=== PATIENT | female | born 1940 | race Native Hawaiian/Other Pacific Islander ===

== ENCOUNTER 2016-12-26 09:22 | Outpatient (CLI) | payer OTHER ==
[2016-12-26 09:57] LABS: POTASSIUM 3.6 mmol/L (3.6-5.2)
[2016-12-26 10:26] LABS: PLATELET COUNT 193 K/uL (152-353)
== END 2016-12-26 19:29 | disposition home or self-care (01) ==
LOC: LABW 09:22
PROVIDERS: Internal Medicine Cardiovascular Disease
DX: I10 Essential (primary) hypertension (principal); E03.8 Other specified hypothyroidism
CPT/HCPCS: 36415; 80053; 80061; 85027

== ENCOUNTER 2017-02-27 15:03 | Outpatient (CLI) | payer OTHER ==
[2017-02-27 15:45] LABS: PLATELET COUNT 193 K/uL (152-353)
== END 2017-02-27 19:47 | disposition home or self-care (01) ==
LOC: LABW 15:03
PROVIDERS: Student in an Organized Health Care Education/Training Program
DX: M79.671 Pain in right foot (principal)
CPT/HCPCS: 36415; 84550; 85027

== ENCOUNTER 2017-05-14 08:40 | Outpatient (CLI) | payer OTHER ==
[2017-05-14 09:09] LABS: PLATELET COUNT 175 K/uL (152-353)
[2017-05-14 09:36] LABS: POTASSIUM 3.7 mmol/L (3.6-5.2)
== END 2017-05-14 09:40 | disposition home or self-care (01) ==
LOC: LABW 08:40
PROVIDERS: Internal Medicine Cardiovascular Disease
DX: Z00.00 Encounter for general adult medical examination without abnormal findings (principal); I10 Essential (primary) hypertension; Z79.899 Other long term (current) drug therapy; Z51.81 Encounter for therapeutic drug level monitoring
CPT/HCPCS: 36415; 80053; 80061; 84443; 85027

== ENCOUNTER 2017-07-04 09:36 | Outpatient (CLI) | payer OTHER | END 2017-07-04 11:00 | disposition home or self-care (01) | LOC: US 09:36 | DX: R10.84 Generalized abdominal pain (principal) ==

== ENCOUNTER 2017-11-08 09:48 | Outpatient (CLI) | payer OTHER ==
[2017-11-08 10:19] LABS: PLATELET COUNT 148 K/uL (152-353)
[2017-11-08 10:41] LABS: POTASSIUM 3.5 mmol/L (3.6-5.2)
== END 2017-11-08 10:50 | disposition home or self-care (01) ==
LOC: LABW 09:48
PROVIDERS: Internal Medicine Cardiovascular Disease
DX: Z00.00 Encounter for general adult medical examination without abnormal findings (principal); I10 Essential (primary) hypertension
CPT/HCPCS: 36415; 80053; 80061; 84443; 85027

== ENCOUNTER 2018-01-21 13:35 | Emergency (ER) | payer OTHER ==
[~2018-01-21] VITALS: Ht 172.7 cm; Wt 90.7 kg
[2018-01-21 15:34] VITALS: BP 178/62; TEMP 98.1
== END 2018-01-21 15:35 | disposition home or self-care (01) ==
LOC: ED 13:35
PROC: 0HQ1XZZ Repair Face Skin, External Approach (ICD-10-PCS; principal; 2018-01-21)
DX: S01.81XA Laceration without foreign body of other part of head, initial encounter (principal); R51 Headache; W17.89XA Other fall from one level to another, initial encounter; Y92.098 Other place in other non-institutional residence as the place of occurrence of the external cause
CPT/HCPCS: 90471; 90715; 99284; J7040

== ENCOUNTER 2018-05-27 09:22 | Outpatient (CLI) | payer OTHER ==
[2018-05-27 10:11] LABS: PLATELET COUNT 165 K/uL (152-353)
[2018-05-27 10:35] LABS: POTASSIUM 3.3 mmol/L (3.6-5.2)
== END 2018-05-27 21:12 | disposition home or self-care (01) ==
LOC: LABW 09:22
PROVIDERS: Internal Medicine Cardiovascular Disease
DX: E03.9 Hypothyroidism, unspecified (principal)
CPT/HCPCS: 36415; 80053; 84443; 85027

== ENCOUNTER 2018-09-02 08:38 | Outpatient (CLI) | payer OTHER ==
[2018-09-02 09:45] LABS: POTASSIUM 3.8 mmol/L (3.6-5.2)
== END 2018-09-02 19:41 | disposition home or self-care (01) ==
LOC: LABW 08:38
PROVIDERS: Internal Medicine Cardiovascular Disease
DX: I10 Essential (primary) hypertension (principal)
CPT/HCPCS: 36415; 80053

== ENCOUNTER 2018-10-28 13:50 | Outpatient (CLI) | payer OTHER | END 2018-10-28 22:21 | disposition home or self-care (01) | LOC: MAMMO 13:50 | DX: Z12.31 Encounter for screening mammogram for malignant neoplasm of breast (principal) ==

== ENCOUNTER 2019-01-01 09:26 | Outpatient (CLI) | payer OTHER ==
[2019-01-01 09:49] LABS: PLATELET COUNT 159 K/uL (152-353)
[2019-01-01 10:22] LABS: POTASSIUM 3.7 mmol/L (3.6-5.2)
== END 2019-01-01 23:16 | disposition home or self-care (01) ==
LOC: LABW 09:26
PROVIDERS: Internal Medicine Cardiovascular Disease
DX: Z00.00 Encounter for general adult medical examination without abnormal findings (principal); I10 Essential (primary) hypertension
CPT/HCPCS: 36415; 80053; 84443; 85027

== ENCOUNTER 2019-07-10 10:18 | Outpatient (CLI) | payer OTHER ==
[2019-07-10 10:35] LABS: PLATELET COUNT 144 K/uL (152-353)
[2019-07-10 10:43] LABS: POTASSIUM 3.9 mmol/L (3.6-5.2)
== END 2019-07-10 19:37 | disposition home or self-care (01) ==
LOC: LABW 10:18
PROVIDERS: Internal Medicine Cardiovascular Disease
DX: Z00.00 Encounter for general adult medical examination without abnormal findings (principal); I10 Essential (primary) hypertension
CPT/HCPCS: 36415; 80053; 85027

== ENCOUNTER 2019-11-10 09:56 | Outpatient (CLI) | payer OTHER ==
[2019-11-10 10:17] LABS: PLATELET COUNT 126 K/uL (152-353)
[2019-11-10 11:25] LABS: POTASSIUM 3.5 mmol/L (3.6-5.2)
== END 2019-11-10 19:30 | disposition home or self-care (01) ==
LOC: LABW 09:56
PROVIDERS: Internal Medicine Cardiovascular Disease
DX: I10 Essential (primary) hypertension (principal); Z79.899 Other long term (current) drug therapy
CPT/HCPCS: 36415; 80053; 80061; 84443; 85027

== ENCOUNTER 2020-01-01 13:29 | Outpatient (CLI) | payer OTHER ==
[2020-01-01 13:46] LABS: PLATELET COUNT 157 K/uL (152-353)
[2020-01-01 14:11] LABS: POTASSIUM 3.6 mmol/L (3.6-5.2)
== END 2020-01-01 19:03 | disposition home or self-care (01) ==
LOC: LAB 13:29
PROVIDERS: Nurse Practitioner Family
DX: Z00.00 Encounter for general adult medical examination without abnormal findings (principal); I10 Essential (primary) hypertension; F32.9 Major depressive disorder, single episode, unspecified; R73.9 Hyperglycemia, unspecified; E03.8 Other specified hypothyroidism; D64.89 Other specified anemias; E55.9 Vitamin D deficiency, unspecified; Z79.899 Other long term (current) drug therapy
CPT/HCPCS: 80053; 80061; 82306; 83036; 84439; 84443; 84481; 85027

== ENCOUNTER 2020-07-19 16:15 | Outpatient (CLI) | payer OTHER ==
[2020-07-19 16:22] LABS: PLATELET COUNT 123 K/uL (152-353)
[2020-07-19 16:49] LABS: POTASSIUM 3.8 mmol/L (3.6-5.2)
== END 2020-07-20 01:11 | disposition home or self-care (01) ==
LOC: LAB 16:15
PROVIDERS: Nurse Practitioner Family
DX: E03.8 Other specified hypothyroidism (principal); F32.89 Other specified depressive episodes; I10 Essential (primary) hypertension; R73.9 Hyperglycemia, unspecified; E55.9 Vitamin D deficiency, unspecified; Z79.899 Other long term (current) drug therapy; M81.0 Age-related osteoporosis without current pathological fracture
CPT/HCPCS: 80053; 80061; 83036; 84439; 84443; 84481; 85027

== ENCOUNTER 2020-08-11 09:50 | Outpatient (CLI) | payer OTHER | END 2020-08-11 23:22 | disposition home or self-care (01) | LOC: US 09:50 | DX: R94.5 Abnormal results of liver function studies (principal) ==

== ENCOUNTER 2020-10-26 08:04 | Outpatient (CLI) | payer OTHER ==
[2020-10-26 08:33] LABS: PLATELET COUNT 126 K/uL (152-353)
[2020-10-26 10:09] LABS: POTASSIUM 3.5 mmol/L (3.6-5.2)
== END 2020-10-26 21:38 | disposition home or self-care (01) ==
LOC: LABW 08:04
PROVIDERS: ATTEND Internal Medicine Cardiovascular Disease
DX: I10 Essential (primary) hypertension (principal); E03.8 Other specified hypothyroidism; E55.9 Vitamin D deficiency, unspecified
CPT/HCPCS: 36415; 80053; 80061; 82306; 84443; 85027

== ENCOUNTER 2021-01-13 14:07 | Outpatient (CLI) | payer OTHER ==
[2021-01-13 14:29] LABS: PLATELET COUNT 127 K/uL (152-353)
== END 2021-01-13 21:36 | disposition home or self-care (01) ==
LOC: LAB 14:07
PROVIDERS: ATTEND Nurse Practitioner Family
DX: F32.9 Major depressive disorder, single episode, unspecified (principal); I10 Essential (primary) hypertension; E03.8 Other specified hypothyroidism; E55.9 Vitamin D deficiency, unspecified; R73.9 Hyperglycemia, unspecified; Z79.899 Other long term (current) drug therapy; K21.9 Gastro-esophageal reflux disease without esophagitis; D64.89 Other specified anemias; E53.8 Deficiency of other specified B group vitamins
CPT/HCPCS: 80053; 80061; 82306; 82607; 83036; 84439; 84443; 85027

== ENCOUNTER 2021-02-09 08:51 | Outpatient (CLI) | payer OTHER ==
[2021-02-09 09:28] LABS: PLATELET COUNT 134 K/uL (152-353)
[2021-02-09 09:47] LABS: POTASSIUM 3.8 mmol/L (3.6-5.2)
== END 2021-02-09 21:49 | disposition home or self-care (01) ==
LOC: LABW 08:51
PROVIDERS: ATTEND Internal Medicine
DX: I12.9 Hypertensive chronic kidney disease with stage 1 through stage 4 chronic kidney disease, or unspecified chronic kidney disease (principal); E03.8 Other specified hypothyroidism; R53.83 Other fatigue; N19 Unspecified kidney failure; Z79.899 Other long term (current) drug therapy
CPT/HCPCS: 36415; 80053; 81000; 82043; 82306; 82570; 82607; 82728; 82746; 83036; 83540; 83550; 83735; 83970; 84100; 84155; 84439; 84443; 85027; 85652; 86038

== ENCOUNTER 2021-03-02 11:13 | Outpatient (CLI) | payer OTHER ==
[2021-03-02 13:00] LABS: PLATELET COUNT 149 K/uL (152-353)
[2021-03-02 13:06] LABS: POTASSIUM 3.7 mmol/L (3.6-5.2)
== END 2021-03-02 21:32 | disposition home or self-care (01) ==
LOC: LABW 11:13
PROVIDERS: ATTEND Internal Medicine Cardiovascular Disease
DX: I10 Essential (primary) hypertension (principal); E03.8 Other specified hypothyroidism; M25.50 Pain in unspecified joint
CPT/HCPCS: 36415; 80053; 80061; 84443; 85027; 85652

== ENCOUNTER 2021-03-29 13:24 | Outpatient (CLI) | payer OTHER ==
[2021-03-29 14:07] LABS: PLATELET COUNT 125 K/uL (152-353)
[2021-03-29 14:58] LABS: POTASSIUM 3.6 mmol/L (3.6-5.2)
== END 2021-03-29 19:26 | disposition home or self-care (01) ==
LOC: LAB 13:24
PROVIDERS: ATTEND Nurse Practitioner Family
DX: E03.8 Other specified hypothyroidism (principal); I10 Essential (primary) hypertension; F32.9 Major depressive disorder, single episode, unspecified; E55.9 Vitamin D deficiency, unspecified; R73.9 Hyperglycemia, unspecified; Z79.899 Other long term (current) drug therapy; G20 Parkinson's disease; D64.89 Other specified anemias; K21.9 Gastro-esophageal reflux disease without esophagitis; M81.0 Age-related osteoporosis without current pathological fracture; E53.8 Deficiency of other specified B group vitamins
CPT/HCPCS: 80053; 80061; 82306; 82607; 83036; 84439; 84443; 85027

== ENCOUNTER 2021-04-06 15:10 | Outpatient (CLI) | payer OTHER | END 2021-04-06 17:00 | LOC: LABW 15:10 | PROVIDERS: ATTEND Nurse Practitioner Family | DX: K74.69 Other cirrhosis of liver (principal) | CPT/HCPCS: 36415; 82140 ==

== ENCOUNTER 2021-04-27 10:14 | Outpatient (CLI) | payer OTHER ==
[2021-04-27 10:56] LABS: PLATELET COUNT 142 K/uL (152-353)
[2021-04-27 11:20] LABS: POTASSIUM 3.3 mmol/L (3.6-5.2)
== END 2021-04-27 21:30 | disposition home or self-care (01) ==
LOC: LABW 10:14
PROVIDERS: ATTEND Nurse Practitioner
DX: I12.9 Hypertensive chronic kidney disease with stage 1 through stage 4 chronic kidney disease, or unspecified chronic kidney disease (principal); N18.4 Chronic kidney disease, stage 4 (severe); D64.9 Anemia, unspecified; E03.9 Hypothyroidism, unspecified; R73.9 Hyperglycemia, unspecified; I10 Essential (primary) hypertension; N18.9 Chronic kidney disease, unspecified
CPT/HCPCS: 36415; 80053; 81000; 82043; 82306; 82570; 82728; 82746; 83540; 83735; 83970; 84100; 84155; 84439; 84443; 85027; 87077; 87086; 87088; 87186

== ENCOUNTER 2021-09-01 12:22 | Outpatient (CLI) | payer OTHER ==
[2021-09-01 13:13] LABS: PLATELET COUNT 146 K/uL (152-353)
[2021-09-01 13:33] LABS: POTASSIUM 4.2 mmol/L (3.6-5.2)
== END 2021-09-01 19:21 | disposition home or self-care (01) ==
LOC: LAB 12:22
PROVIDERS: ATTEND Internal Medicine
DX: I12.9 Hypertensive chronic kidney disease with stage 1 through stage 4 chronic kidney disease, or unspecified chronic kidney disease (principal); E03.8 Other specified hypothyroidism; N18.32 Chronic kidney disease, stage 3b
CPT/HCPCS: 80053; 81000; 82043; 82306; 82330; 82570; 83735; 83970; 84100; 84155; 84439; 84443; 85027

== ENCOUNTER 2021-10-10 16:16 | Outpatient (CLI) | payer OTHER ==
[2021-10-10 16:42] LABS: PLATELET COUNT 139 K/uL (152-353)
[2021-10-10 16:54] LABS: POTASSIUM 3.9 mmol/L (3.6-5.2)
== END 2021-10-10 19:01 | disposition home or self-care (01) ==
LOC: LAB 16:16
PROVIDERS: ATTEND Internal Medicine
DX: I12.9 Hypertensive chronic kidney disease with stage 1 through stage 4 chronic kidney disease, or unspecified chronic kidney disease (principal); N18.9 Chronic kidney disease, unspecified
CPT/HCPCS: 80053; 81000; 83735; 84100; 85027